=== PATIENT | female | born 1960 | race Caucasian/White ===

== ENCOUNTER 2016-08-31 10:22 | Inpatient (IN) | payer OTHER ==
[~2016-08-31] VITALS: Ht 154.9 cm; Wt 57.6 kg
[2016-08-31] MEDS ORDERED: ASPIRIN325 MG PO (10:46)
[2016-08-31] MEDS ORDERED: CYMBALTA60 MG PO (10:47)
[2016-08-31] MEDS ORDERED: FOSAMAX70 MG PO (10:47)
[2016-08-31] MEDS ORDERED: LORTAB 7.5-3251 EACH PO (10:47)
[2016-08-31] MEDS ORDERED: ISORDIL TAB 3030 MG PO (10:48)
[2016-08-31] MEDS ORDERED: NEXIUM40 MG PO (10:49)
[2016-08-31] MEDS ORDERED: NEURONTIN 300300 MG PO (10:49)
[2016-08-31] MEDS ORDERED: METOPROLOL SUCC25 MG PO (10:49)
[2016-08-31] MEDS ORDERED: SYNTHROID 125125 MCG PO (10:49)
[2016-08-31] MEDS ORDERED: RANITIDINE HCL300 M1 PO (10:50)
[2016-08-31] MEDS ORDERED: PLAVIX 75 MG TA75 MG PO (10:50)
[2016-08-31] MEDS ORDERED: VISTARIL25 MG PO (10:50)
[2016-08-31] MEDS ORDERED: VOLTAREN EC 5050 MG PO (10:51)
[2016-08-31 11:10] LABS: RED BLOOD COUNT 3.8 M/UL (4.00-5.10); WHITE BLOOD COUNT 13.4 K/UL (4.5-11.0)
[2016-08-31 11:27] LABS: BUN/CREATININE RATIO 13 (0-10)
== END 2016-08-31 17:48 | disposition short-term general hospital (02) | DRG 280 ==
LOC: CTU 10:22 → CCU 10:58
PROVIDERS: Internal Medicine Cardiovascular Disease; ADMIT Internal Medicine Infectious Disease
PROC: 4A023N7 Measurement of Cardiac Sampling and Pressure, Left Heart, Percutaneous Approach (ICD-10-PCS; principal; 2016-08-31)
PROC: B2111ZZ Fluoroscopy of Multiple Coronary Arteries using Low Osmolar Contrast (ICD-10-PCS; 2016-08-31)
PROC: B2151ZZ Fluoroscopy of Left Heart using Low Osmolar Contrast (ICD-10-PCS; 2016-08-31)
DX: I21.29 ST elevation (STEMI) myocardial infarction involving other sites (principal); I49.01 Ventricular fibrillation; I25.110 Atherosclerotic heart disease of native coronary artery with unstable angina pectoris; I10 Essential (primary) hypertension; E78.5 Hyperlipidemia, unspecified; J44.9 Chronic obstructive pulmonary disease, unspecified; E03.9 Hypothyroidism, unspecified; K21.9 Gastro-esophageal reflux disease without esophagitis; G89.29 Other chronic pain; M54.9 Dorsalgia, unspecified; F17.200 Nicotine dependence, unspecified, uncomplicated; Z95.5 Presence of coronary angioplasty implant and graft; Z79.02 Long term (current) use of antithrombotics/antiplatelets; Z79.82 Long term (current) use of aspirin; Z79.891 Long term (current) use of opiate analgesic; Z79.899 Other long term (current) drug therapy; Z88.0 Allergy status to penicillin; Z90.710 Acquired absence of both cervix and uterus; Z90.49 Acquired absence of other specified parts of digestive tract; Z98.890 Other specified postprocedural states; Z82.49 Family history of ischemic heart disease and other diseases of the circulatory system; Z83.3 Family history of diabetes mellitus
CPT/HCPCS: 36415; 71010; 80048; 82550; 82553; 83735; 84439; 84443; 84484; 85027; 93005; C1769; J0583; J1644; J2250; J2270; J2370; J3010; J7040; Q9965